=== PATIENT | female | born 1945 | race African-American/Black ===

== ENCOUNTER → 2016-06-11 | Outpatient (CLI) | payer BC ==
[~2016-06-11] MED LIST: ATOR10TA69 PO; CINN500C5 PO; CYAN10009 PO; LISI10TA5 PO
[2016-06-11 07:53] LABS: BASOPHILS % 0.6 % (0.0-2.0); DIFFERENTIAL COMMENT 0; EOSINOPHILS % 2.6 % (0.0-5.0); HEMATOCRIT. 36.6 % (36.0-48.0); HEMOGLOBIN. 11.8 g/dL (12.0-16.0); LYMPHOCYTES % 40.1 % (20.0-50.0); MEAN CORPUSCULAR HEMOGLOBIN 25.7 pg (28.0-32.0); MEAN CORPUSCULAR HGB CONC 32.4 g/dL (31.0-37.0); MEAN CORPUSCULAR VOLUME 79.4 fL (81.0-99.0); MEAN PLATELET VOLUME 8.5 fl (7.4-10.4); MONOCYTES % 9.3 % (2.0-8.0); NEUTROPHILS % 47.4 % (40.0-76.0); PLATELET 273 x1000/uL (130-400); RED BLOOD CELL COUNT 4.61 mill/uL (4.2-5.4); RED CELL DISTRIBUTION WIDTH 14.2 % (11.6-14.6); WHITE BLOOD COUNT 6.9 x1000/uL (4.5-11.0)
[2016-06-11 08:15] LABS: INDEX HEMOLYSI 1 (1-3)
[2016-06-11 08:17] LABS: ALANINE AMINOTRANSFERASE 24 IU/L (13-61); ALBUMIN 3.3 g/dL (3.4-5.0); ANION GAP 11; CALCIUM 8.7 mg/dL (8.5-10.1); CARBON DIOXIDE 29 mEq/L (21-32); CHLORIDE 106 mEq/L (98-107); HDL CHOLESTEROL 71 mg/dL (40-59); INDEX HEMOLYSI 1 (1-3); INDEX ICTERIC 1 (1-4); INDEX LIPEMIC 1 (1-3); LDL CHOLESTEROL 59 mg/dL (5-100); T4 FREE 1.24 ng/dL (0.76-1.46); TRIGLYCERIDE 53 mg/dL (0-150); UREA NITROGEN BLOOD 12 mg/dL (7-21); eGFR > 60 mL/min (>60)
[2016-06-11 08:19] LABS: T3 FREE 2.63 pg/ml (2.18-3.98)
[2016-06-11 08:30] LABS: VITAMIN B12 SERUM 1991 pg/mL (211-911)
[2016-06-12 13:07] LABS: *CREATININE RANDOM URINE 72.8 mg/dL (Not Estab.); MICROALBUMIN RANDOM URINE 12.8 ug/mL (Not Estab.); MICROALBUMIN/CREATININE RATIO 17.6 mg/g creat (0.0-30.0)
[2016-06-12 19:42] LABS: ANTI-NUCLEAR ANTIBODIES DIRECT Negative (Negative)
== END | disposition home or self-care (01) ==
LOC: MAMMO 07:09
PROVIDERS: ATTEND Internal Medicine
DX: Z12.31 Encounter for screening mammogram for malignant neoplasm of breast (principal); I10 Essential (primary) hypertension; H40.9 Unspecified glaucoma; E11.59 Type 2 diabetes mellitus with other circulatory complications; M25.561 Pain in right knee; M47.817 Spondylosis without myelopathy or radiculopathy, lumbosacral region; M17.12 Unilateral primary osteoarthritis, left knee; R60.9 Edema, unspecified; R53.83 Other fatigue
CPT/HCPCS: 36415; 72110; 73521; 73562; 80053; 80061; 82043; 82306; 82570; 82607; 83036; 84439; 84443; 84481; 85025; 85651; 86038; 86430; G0202